=== PATIENT | female | born 1990 | race Caucasian/White ===

== ENCOUNTER 2019-02-08 12:33 | Emergency (ER) | payer BC, OTHER ==
--- NOTE | 2019-02-08 13:23 | UC ---
Respiratory Complaint HPI - HPI Summary HPI Summary: Patient is 28 year old female , who present today to the urgent care with chest congestion for past 2-3 days. She initially felt congested in her sinuses which has resolved and feel more in her chest now. There is associated wheezing(she has a history of asthma and takes only albuterol inhaler as needed) and cough productive of yellowish green phlegm. She has a coworker who is sick with similar symptoms. So far she denies any fevers. - History of Current Complaint Stated Complaint: SINUS,COUGH Time Seen by Provider: 02/08/19 13:14 Hx Obtained From: Patient Hx Last Menstrual Period: 01/24/16 - Allergies/Home Medications Allergies/Adverse Reactions: Allergies Allergy/AdvReac Type Severity Reaction Status Date / Time amoxicillin Allergy Hives Verified 02/08/19 13:50 Home Medications: Home Medications Desloratadine/Pseudoephedrine [Clarinex-D 12 Hour] 1 tab PO DAILY 02/08/19 [ History Confirmed 02/08/19] Dextroamphetamine/Amphetamine [Adderall 20 mg Tablet] 1 tab PO DAILY 02/08/19 [ History Confirmed 02/08/19] Rosuvastatin Calcium [Crestor] 20 mg PO DAILY 02/08/19 [History Confirmed ] PMH/Surg Hx/FS Hx/Imm Hx - Additional Past Medical History Additional PMH: Past Medical History : Asthma(on rescue albuterol inhaler as needed), ADHD, hyperlipidemia, factor V [place] but denies any history of DVT Past Surgical History: No Past History of Procedure Family History : non contributory Social History : Occasional alcohol, smoker - half PPD, no drug use. She works at [employer] Previously Healthy: Yes - Surgical History Surgical History: None - Family History Known Family History: Positive: Hypertension, Non-Contributory - Social History Alcohol Use: Occasionally Substance Use Type: None Smoking Status (MU): Never Smoked Tobacco Review of Systems All Other Systems Reviewed And Are Negative: Yes Constitutional: Positive: Negative Skin: Positive: Negative Eyes: Positive: Negative ENT: Positive: Sinus Congestion. Negative: Sore Throat Respiratory: Positive: Cough - Yellowish productive Cardiovascular: Positive: Negative Gastrointestinal: Positive: Negative Genitourinary: Positive: Negative Motor: Positive: Negative Neurovascular: Positive: Negative Musculoskeletal: Positive: Negative Neurological: Positive: Negative Psychological: Positive: Negative Is Patient Immunocompromised?: No Physical Exam - Summary Physical Exam Summary: Physical Exam: Const: Appears well. No signs of apparent distress present. Alert and oriented x 3. Musculo: Walks with a normal gait. Head/Face: Atraumatic, normocephalic on inspection. Eyes: EOMI and PERRLA in both eyes. Conjunctivae clear. No discharge noted ENT: Hearing normal, TM normal appearing bilaterally No tenderness to palpation on maxillary and frontal sinus. No pharyngeal erythema or exudates . Uvula is midline. No cervical or submandibular lymphadenopathy noted. Respiratory: Wheezing is noted in bilateral lower lung cardona, air entry is good and some crackles heard on the right lower lobe CVS: Regular rate and Rhythm, S1S2 normal , no murmurs identified. Extremities: Peripheral circulation is grossly normal. Pulses 2+ Abdomen : Soft non tender , nondistended , Bowel sounds present . No guarding , rebound tenderness or rigidity noted. Skin: No lesions or rash located on the upper extremities or on the lower extremities. Neuro: Cranial nerves II to XII intact, motor and sensory intact. DTR Intact bilaterally. Mood is normal. Affect is normal. Triage Information Reviewed: Yes Vital Signs Reviewed: Yes Respiratory Course/Dx - Course Course Of Treatment: During the visit today, we obtained chest x-ray: IMPRESSION: NO EVIDENCE FOR ACTIVE CARDIOPULMONARY DISEASE. She was given DuoNeb nebulizer treatment and she reported improvement. Suspect acute bronchitis versus walking pneumonia. We discussed the findings and further plan to treat with a short steroid course and cover with antibiotics .I will prescribe the medication to the pharmacy . Patient expressed understanding . - Differential Dx/Diagnosis Provider Diagnosis: Walking pneumonia, Acute bronchitis Discharge - Sign-Out/Discharge Documenting (check all that apply): Patient Departure All imaging exams completed and their final reports reviewed: Yes - Discharge Plan Condition: Stable Disposition: HOME Prescriptions: Azithromyxin CHOLO (NF) [Z-Cholo (Zithromax) 250 mg tabs #6] 2 tab PO .TODAY, THEN 1 DAILY #6 tab predniSONE [Prednisone 20 MG TAB] 60 mg PO DAILY 5 Days #15 tablet Patient Education Materials: Acute Bronchitis (ED), Wheezing (ED) Referrals: Danyell Zarate MD [Primary Care Provider] - If Needed Additional Instructions: Please start taking the medication as prescribed to the pharmacy . Using her inhaler every 4-6 hour as needed for shortness of breath. Follow up with your primary care doctor in 7 days if needed. Patients blood pressure slightly high in Urgent care today , plan follow up with PCP for better control Return to Urgent care / ER if symptoms get worse. - Billing Disposition and Condition Condition: STABLE Disposition: Home
[2019-02-08] MEDS ORDERED: Albuterol/Ipratropium NEB.SOL* Albuterol 2.5 MG/Ipratropium 0.5 MG 3 ML INH ONE (13:34)
[2019-02-08 13:49] VITALS: BP 133/87
== END 2019-02-08 14:27 | disposition home or self-care (01) ==
LOC: UCCORT 12:33
DX: J18.8 Other pneumonia, unspecified organism (principal); J20.9 Acute bronchitis, unspecified; Z88.0 Allergy status to penicillin; J45.909 Unspecified asthma, uncomplicated; D68.51 Activated protein C resistance; F90.9 Attention-deficit hyperactivity disorder, unspecified type; E78.5 Hyperlipidemia, unspecified; F17.210 Nicotine dependence, cigarettes, uncomplicated
CPT/HCPCS: 71046; 99212; A9270-GY; G0463

== ENCOUNTER 2019-05-02 18:19 | Emergency (ER) | payer OTHER ==
[2019-05-02 18:45] VITALS: BP 141/86
--- NOTE | 2019-05-02 18:47 | UC ---
HPI Wound/Suture Re-check - HPI Summary HPI Summary: Patient presents to urgent care for evaluation of blister on the base of her left foot. Patient states it has been one month ago she was outside picking berries in the proximal. Patient states following that she developed an area of redness in the base of her middle toe on her left foot. Patient states this improved. Patient states 2 days ago she noticed the redness was back. Patient states last night when she lifted her foot she had what appeared to be a blister and some redness extending to her toes. Patient states when she first took off her shoes last night her pads of her toes were awake but over time they improved. Patient states she wished as goes to work and thought her feet got hot and that was why. Patient states again today she noticed the blister appears to getting bigger and she also had the redness she came here. Patient reports mild discomfort. No fevers or chills. No foreign body sensation. No drainage. Not immunocompromised. No paresthesias. No analgesic taken. Patient states it aches a little bit. Patient's medications reviewed this visit. - History Of Current Complaint Chief Complaint: JACOBkin Stated Complaint: BLISTER ON BOTTOM OF LEFT FOOT Time Seen by Provider: 05/02/19 18:46 Hx Obtained From: Patient Hx Last Menstrual Period: Apr 08 Pain Intensity: 1 - Allergies/Home Medications Allergies/Adverse Reactions: Allergies Allergy/AdvReac Type Severity Reaction Status Date / Time amoxicillin Allergy Hives Verified 05/02/19 18:45 Home Medications: Home Medications Mini Pill 1 tab PO DAILY 05/02/19 [History Confirmed 05/02/19] PMH/Surg Hx/FS Hx/Imm Hx Previously Healthy: Yes - Surgical History Surgical History: None - Family History Known Family History: Positive: Hypertension, Non-Contributory - Social History Occupation: Employed Full-time Lives: With Family Alcohol Use: Weekly Alcohol Amount: 6 each Sat Sun Substance Use Type: None Smoking Status (MU): Heavy Every Day Tobacco Smoker Type: Cigarettes Amount Used/How Often: 1/2 ppd Length of Time of Smoking/Using Tobacco: since age 16 Have You Smoked in the Last Year: Yes - Immunization History Most Recent Tetanus Shot: 2011 Review of Systems All Other Systems Reviewed And Are Negative: Yes Constitutional: Positive: Negative. Negative: Fever Skin: Positive: Other - Blister left foot Is Patient Immunocompromised?: No Physical Exam - Summary Physical Exam Summary: Vital Signs Reviewed: Yes A+Ox3, no distress Eyes: Conjunctiva Clear ENT: Hearing grossly normal neck: supple Respiratory: Positive: No respiratory distress, No accessory muscle use Cardiovascular: skin color reflect adequate perfusion 2+ DP, PT CBT < 2 sec Musculoskeletal Exam: ROBERTO x 4 without difficulty + flex/ext knee, ankle + great toe ext without pain Neurological: Positive: Alert, ambulatory without difficulty Psychological: Positive: Normal Response To examiner Skin: Positive: left foot Pt with 2x1 can blister base of left 3rd great toe. Pt with mild erythema in webspacing of left 2/3 and 3/4 toes; mild discomfort with direct palpation of blister. Pt with white appearing blisters pads of great, 2nd, 3rd - CBT < 2 sec, warm, normal blanching Triage Information Reviewed: Yes Vital Signs: Initial Vital Signs Temp 99 F 05/02/19 18:33 Pulse 102 05/02/19 18:33 Resp 18 05/02/19 18:33 BP 141/86 05/02/19 18:33 Pulse Ox 99 05/02/19 18:33 Course/Dx - Course Course Of Treatment: Patient presents here for evaluation of blister that developed over the last 3 days at the base of her third toe on the bottom of her left foot. Patient states in the same area she had an area of redness after O walking outside picking berries and blood clots. Patient states progressively since 3 days ago the blister has gotten bigger. Mild tenderness. Patient states she also noticed some erythematous friend between the webbing of her toes. Of note, yesterday and again today when she first took of her shoes were pads of her toes were white. They are warm not wet and blanching. Patient with mild discomfort over the blister. Patient denies a foreign body sensation. No fevers or chills. No immune compromise. No red streaking. After long discussion with patient suspect this is an early cellulitis. Palpation of doxycycline. Recommend Epsom salt soaks. Elevate. Motrin, prescription return precautions. Advised patient to follow up with PCP next week. Return to urgent care the ED for increased redness, red streaking, fever, pain. Patient states understanding and agreement with plan. Mild elevation of blood pressure. Recommended follow up with PCP - Diagnosis Provider Diagnosis: Wound of left foot, Cellulitis Discharge ED - Sign-Out/Discharge Documenting (check all that apply): Patient Departure All imaging exams completed and their final reports reviewed: No Studies - Discharge Plan Condition: Stable Disposition: HOME Prescriptions: DOXYcycline CAP(*) [DOXYcycline 100MG CAP(*)] 100 mg PO BID #20 cap Patient Education Materials: Cellulitis (ED), Blister (ED) Referrals: Danyell Zarate MD [Primary Care Provider] - Additional Instructions: - Take antibiotics twice a day as prescribed for 10 days. - Okay to alternate ibuprofen (Advil, Motrin) and Tylenol (acetaminophen) every 3 hours for pain or fever. Take with food. Do NOT take for more than 4-5 days. - Soak foot in warm Epsom salt soaks for 10 minutes 2-3 times a day for the next 2-3 days - Elevate her foot to help with swelling and pain - Monitor closely. If he develops increased pain, increased redness. Red streaking, fevers, or other concern is recommended to the emergency department for further evaluation and treatment. - Is recommended that you contact her doctor for follow-up appointment next week - It's recommended to be her foot open to air and not entirely fitting shoes course sutures are socks are moist. - Billing Disposition and Condition Condition: STABLE Disposition: Home
== END 2019-05-02 19:11 | disposition home or self-care (01) ==
LOC: UCCORT 18:19
DX: S90.922A Unspecified superficial injury of left foot, initial encounter (principal); L03.116 Cellulitis of left lower limb; F17.210 Nicotine dependence, cigarettes, uncomplicated; Z88.0 Allergy status to penicillin; X58.XXXA Exposure to other specified factors, initial encounter; Y93.01 Activity, walking, marching and hiking; Y92.9 Unspecified place or not applicable
CPT/HCPCS: 99212; G0463

== ENCOUNTER 2019-07-08 12:07 | Emergency (ER) | payer OTHER ==
[2019-07-08 13:21] VITALS: BP 146/96
--- NOTE | 2019-07-08 13:56 | UC ---
General HPI - HPI Summary HPI Summary: Patient states she drank too much and tripped and fell on her left arm. Lots of pain in her left upper arm and left hand pain. Large hematoma in upper arm. INjured her right elbow last year. - History of Current Complaint Chief Complaint: UCUpperExtremity Stated Complaint: LEFT ARM/HAND INJURY Time Seen by Provider: 07/08/19 13:35 Hx Last Menstrual Period: 06/22/19 Pain Intensity: 4 - Allergy/Home Medications Allergies/Adverse Reactions: Allergies Allergy/AdvReac Type Severity Reaction Status Date / Time amoxicillin Allergy Hives Verified 07/08/19 13:14 Home Medications: Home Medications Progesterone, Micronized [Progesterone] 100 mg PO DAILY 07/08/19 [History Confirmed 07/08/19] ValACYclovir (*) [Valtrex 500 mg (*)] 500 mg PO DAILY 07/08/19 [History Confirmed 07/08/19] buPROPion HCl [Wellbutrin Sr] 150 mg PO DAILY 07/08/19 [History Confirmed ] PMH/Surg Hx/FS Hx/Imm Hx Previously Healthy: Yes - Surgical History Surgical History: None - Family History Known Family History: Positive: Hypertension, Non-Contributory - Social History Alcohol Use: Weekly Alcohol Amount: 6 each Sat Sun Substance Use Type: None Smoking Status (MU): Heavy Every Day Tobacco Smoker Type: Cigarettes Amount Used/How Often: 1/2 ppd Length of Time of Smoking/Using Tobacco: since age 16 Have You Smoked in the Last Year: Yes - Immunization History Most Recent Tetanus Shot: 2011 Review of Systems All Other Systems Reviewed And Are Negative: Yes Motor: Positive: Decreased ROM, Weakness Physical Exam Triage Information Reviewed: Yes Appearance: Well-Appearing Vital Signs: Initial Vital Signs Temp 98.5 F 07/08/19 13:16 Pulse 97 07/08/19 13:16 Resp 20 07/08/19 13:16 BP 146/96 07/08/19 13:16 Pulse Ox 98 07/08/19 13:16 Musculoskeletal: Positive: Other: - left arm pain, hematoma on left upper ext, limiter ROM of forearm and pain over hand between first and second digit. No wrist complaints. +Pulses. Diagnostics - Radiology Hand left Radiology Interpretation Completed By: Radiologist - no acute fracture left humerus Radiology Interpretation Completed By: Radiologist - no acute fracture left wrist Radiology Interpretation Completed By: Radiologist Summary of Radiographic Findings: no acute fracture Course/Dx - Course Course Of Treatment: Hand, elbow, humerus xray: No acute fracture Plan Limit alcohol intake Recommend tylenol and/or ibuprofen as needed for pain If symptoms persist or worsen over the next several days - recommend follow up with Orthopedics [phone] Limit use, rest, elevate and ice area - Diagnoses Provider Diagnosis: Contusion of arm, left Discharge ED - Sign-Out/Discharge Documenting (check all that apply): Patient Departure All imaging exams completed and their final reports reviewed: Yes - Discharge Plan Condition: Good Disposition: HOME Patient Education Materials: Hand Sprain (ED), Hematoma (ED) Referrals: Danyell Zarate MD [Primary Care Provider] - Additional Instructions: Limit alcohol intake Recommend tylenol and/or ibuprofen as needed for pain If symptoms persist or worsen over the next several days - recommend follow up with Orthopedics [phone] Limit use, rest, elevate and ice area - Billing Disposition and Condition Condition: GOOD Disposition: Home
== END 2019-07-08 14:20 | disposition home or self-care (01) ==
LOC: UCCORT 12:07
DX: S40.022A Contusion of left upper arm, initial encounter (principal); F17.210 Nicotine dependence, cigarettes, uncomplicated; W18.30XA Fall on same level, unspecified, initial encounter; Y92.9 Unspecified place or not applicable; Z88.0 Allergy status to penicillin
CPT/HCPCS: 99211; G0463